=== PATIENT | male | born 1935 | race Caucasian/White ===

== ENCOUNTER 2018-07-25 05:56 | Day surgery (SDC) | payer MEDICARE ==
[2018-07-23 15:04] LABS: BASOPHILS % (AUTO) 0.8 % (0.0-5.0); EOSINOPHILS % (AUTO) 3.6 % (0.0-8.0); HEMATOCRIT 42.7 % (42-54); LYMPHOCYTES % (AUTO) 23.2 % (21.0-51.0); MEAN CORPUSCULAR HEMOGLOBIN 31.5 pg (27.0-33.0); MEAN CORPUSCULAR HGB CONC 33.6 g/dL (32.0-36.0); MEAN CORPUSCULAR VOLUME 93.7 fL (79-99); MONOCYTES % (AUTO) 10.5 % (3.0-13.0); NEUTROPHILS % (AUTO) 61.9 % (40.0-77.0); NUCLEATED RED BLOOD CELLS 0.1 % (0.0-0.19); PLATELET COUNT (AUTO) 182 K/uL (130-400); RED BLOOD CELL COUNT(AUTO) 4.56 MIL/uL (4.50-6.20); RED CELL DISTRIBUTION WIDTH 13.9 % (11.0-15.5); WHITE BLOOD COUNT (AUTO) 7.2 K/uL (4.8-10.8)
[2018-07-23 15:18] VITALS: BP 132/86
[2018-07-23 15:18] LABS: POTASSIUM 4.2 mmol/L (3.5-5.1)
--- NOTE | 2018-07-24 16:14 | NUR ---
EKG ABNORMAL EKG REPORTED TO DR. GONZALEZ. PENDING FURTHER ORDERS
--- NOTE | 2018-07-24 16:26 | NUR ---
EKG RECEIVED CALL BACK FROM DR. CARLOS HEATH TO PROCEED WITH SX, NO FURTHER ORDERS GIVEN
[~2018-07-25] VITALS: Ht 175.3 cm; Wt 104.1 kg
[2018-07-25] VITALS (16 sets, daily range): BP systolic 111–139; BP diastolic 71–115
[~2018-07-25 05:56] MED LIST: AMLO10TA7 PO; BENA40TA9 PO; CEFTRIAXONE SODIUM 1 GM IVP SCH; FINA5TAB41 PO; GLUC100019 PO; METOPROLOL ER PO; OMEP20TA2 PO; SIMV10TA6 PO; SITA1TAB6 PO; TAMS-1 PO; WARF7.5T23 PO
[2018-07-25] MEDS ORDERED: SODIUM CHLORIDE 0.9% 1000ML 1,000 ML IV ONE ×2 (06:23)
[2018-07-25] MEDS ORDERED: CEFTRIAXONE SODIUM 1 GM ONE (06:24)
[2018-07-25 07:22] LABS: INR 1.08 (0.85-1.15); PARTIAL THROMBOPLASTIN TIME 29.5 SEC (26.3-35.5); PROTHROMBIN TIME 11.3 SEC (9.6-11.6)
[2018-07-25] MEDS ORDERED: ROCURONIUM 10MG/1ML SYR 10 MG/ML ML ONE (07:37)
[2018-07-25] MEDS ORDERED: FENTANYL CITRATE PF 50 MCG/1 ML 5ML AMP IV ONE (07:37)
[2018-07-25] MEDS ORDERED: PROPOFOL 10 MG/ML 20ML VIAL IV ONE (07:37)
[2018-07-25] MEDS ORDERED: NEOSTIGMINE 5MG/5ML SYR IV ONE (09:12)
[2018-07-25] MEDS ORDERED: GLYCOPYRROLATE 1 MG/5 ML SYRINGE ONE (09:12)
[2018-07-25] MEDS ORDERED: OPIUM/BELLADONNA ALKALOIDS 1 EACH SUPP.RECT RC ONE (10:17)
[2018-07-25] MEDS ORDERED: PHENAZOPYRIDINE HCL 200 MG TABLET ONE (10:52)
--- NOTE | 2018-07-25 11:20 | NUR ---
DISCHARGE ORAL AND WRITTEN DISCHARGE INSTRUCTIONS GIVEN TO PT AND PTS . PRESCRIPTION GIVEN TO . INSTRUCTIONS ON ODELL CARE CHANGING TO LEG BAG GIVEN TO . RETURN DEMONSTRATION DONE BY . NO OTHER QUESTIONS AT THIS TIME.
--- NOTE | 2018-07-25 11:38 | NUR ---
ASSESSMENT RECEIVED PT FROM PACU STAFF CHINTAN SALINAS. PT [id number]. 18 FR ODELL CATH DRAINING TO BEDSIDE WITH 100ML OF CLEAR YELLOW URINE. DENIES ANY DISCOMFORT AT THIS TIME. AT BEDSIDE.
== END 2018-07-25 11:57 | disposition home or self-care (01) ==
LOC: DAH 05:56
PROVIDERS: ATTEND Urology
DX: N40.1 Benign prostatic hyperplasia with lower urinary tract symptoms (principal); C61 Malignant neoplasm of prostate; R35.0 Frequency of micturition; R39.14 Feeling of incomplete bladder emptying; R35.1 Nocturia; R39.15 Urgency of urination; Z98.890 Other specified postprocedural states; Z79.899 Other long term (current) drug therapy; E11.9 Type 2 diabetes mellitus without complications; K21.9 Gastro-esophageal reflux disease without esophagitis; I10 Essential (primary) hypertension; I48.91 Unspecified atrial fibrillation; Z95.0 Presence of cardiac pacemaker; Z79.84 Long term (current) use of oral hypoglycemic drugs; Z87.891 Personal history of nicotine dependence
CPT/HCPCS: 36415 ×2; 52648; 80048; 82948 ×2; 85025; 85610; 85730; 93005; A4218; A4340; A4354; A4358; A4510; A4600; J0696; J2704; J2710; J3010; J3490; J7030 ×2; J7120